=== PATIENT | male | born 1990 | race African-American/Black ===

== ENCOUNTER 2018-01-09 17:05 | Emergency (ER) | payer SELFPAY ==
[~2018-01-09] VITALS: Ht 172.7 cm; Wt 68.0 kg
[~2018-01-09 17:05] MED LIST: ATARAX25 MG PO; CLARITIN10 MG PO; CLINDAMYCIN HC300 MG PO; HYDROCODONE BIT1 T11 PO; IBU800 M1 PO; MOTRIN800 MG PO; PEN-VEE K500 MG PO; PREDNISONE20 MG PO
[2018-01-09] MEDS ORDERED: AMOXICILLIN500 M2 PO (17:14)
[2018-01-09] MEDS ORDERED: Motrin,Rufen800 MG PO (17:14)
== END 2018-01-09 17:23 | disposition home or self-care (01) ==
LOC: ED 17:05
DX: K08.89 Other specified disorders of teeth and supporting structures (principal); Z91.013 Allergy to seafood

== ENCOUNTER 2018-08-09 18:55 | Emergency (ER) | payer SELFPAY ==
[~2018-08-09] VITALS: Ht 172.7 cm; Wt 68.0 kg
[~2018-08-09 18:55] MED LIST changes: +AMOXICILLIN500 M2 PO; +Motrin,Rufen800 MG PO
[2018-08-09] MEDS ORDERED: CEPHALEXIN500 M1 PO (19:33)
== END 2018-08-09 21:30 | disposition home or self-care (01) ==
LOC: ED 18:55
DX: L03.011 Cellulitis of right finger (principal); Z91.013 Allergy to seafood

== ENCOUNTER 2019-09-10 09:40 | Emergency (ER) | payer SELFPAY ==
[~2019-09-10] VITALS: Ht 172.7 cm; Wt 65.8 kg
[~2019-09-10 09:40] MED LIST changes: +CEPHALEXIN500 M1 PO
[2019-09-10] MEDS ORDERED: Motrin,Rufen400 MG PO (10:23)
[2019-09-10] MEDS ORDERED: PENICILLIN-VK500 MG PO (10:23)
[2019-09-10] MEDS ORDERED: TYLENOL325 M1 PO (10:23)
== END 2019-09-10 10:30 | disposition home or self-care (01) ==
LOC: ED 09:40
DX: K02.9 Dental caries, unspecified (principal); Z91.013 Allergy to seafood; Z79.2 Long term (current) use of antibiotics; Z79.899 Other long term (current) drug therapy